=== PATIENT | female | born 1965 | race Caucasian/White ===

== ENCOUNTER 2016-11-28 22:31 | Emergency (ER) | payer OTHER ==
[~2016-11-28] VITALS: Ht 170.2 cm; Wt 86.4 kg
[2016-11-28 22:35] VITALS: BP 155/106; PULSE 84; RESP 24; O2SAT 99
--- NOTE | 2016-11-28 22:43 | ED.REPORT ---
HPI-General Illness Date of Service Nov 28, 2016 ED Provider: Abraham Puentes.O. A 51 year old female with a history of Doris's thyroiditis presents to the ED with worsening dysphagia onset tonight. The patient feels as though there is a lump at the base of her throat and throat swelling. She has an appointment with GI in two days because this problem has been progressing some time, but she "just couldn't wait until then." She had a normal swallow test two months ago. The patient is extremely anxious during the interview. She denies vomiting. He is also going to see Dr. aburto tomorrow from ear nose and throat. Nursing Notes Stated Complaint: THROAT SWELLING Chief Complaint: General Complaint Nursing Notes Reviewed: Yes Allergies: Coded Allergies: Penicillins (Verified Allergy, Mild, rash, 11/28/16) General Time Seen by MD: 22:42 Chief Complaint Other (Dysphagia) Hx Obtained From: Patient Arrived By: Walk-in Sudden in Onset?: No Onset Occurred: 1 - 4 hours ago Symptom Duration: Since onset Location: : Neck (Throat) Quality: Painful Severity: Current: Moderate Severity: Maximum: Moderate Associated with: Denies: Fever, Vomiting Pertinent Negative: Relieved by nothing Recent Healthcare: No recent doctor visit Similar Sx Previous: Yes Past Medical History Past Medical History Odris's thyroiditis Past Surgical History None reported Smoking History Unknown if Ever Smoker Social History Other Social History: Good social support, Ambulatory Status Independent Review of Systems + dysphagia Full Review of Systems Constitutional: Denies: Fever Ears / Nose / Throat: Reports: Throat swelling Respiratory: Denies: Non-productive cough, Shortness of breath GI: Denies: Vomiting Neurologic: Denies: Unable to speak Psychiatric: Reports: Anxiety Complete sys rev & neg: except as marked. Physical Exam Vital Signs Vital Signs Date Time Temp Pulse Resp B/P Pulse Ox O2 Delivery O2 Flow Rate FiO2 11/29/16 01:54 68 16 115/74 94 Room Air 11/28/16 22:35 36.9 84 24 155/106 99 Room Air Initial VS: Reviewed Head / Eyes: Atraumatic, Normocephalic Respiratory: Breath sounds normal, Clear to auscultation, No respiratory distress Cardiovascular: Regular rate & rhythm, Heart sounds normal Skin: Warm, Dry, No cyanosis Neurologic: Alert, Oriented, Nonfocal General/Constitutional: Awake, Alert Behavior: Positive: Anxious ENT: Airway patent, Mucous membranes moist, No trismus No stridor, no trismus, no drooling Neck: Supple, Full range of motion, No masses Psychiatric: Affect NL, Cognitive function NL, Thought content NL Abnormal Mood/Affect: Positive: Anxious Interpretation & Diagnostics CT NECK W/ IV CONTRAST: CONCLUSION: Mild soft tissue thickening of the left vallecula, nonspecific, may be artifact from retained secretions. Cannot rule out underlying mass or inflammatory/ infectious abnormailyt. Mild heterogeneous enhancing thyroid, nonspecific. No radiopaque foreign body of the upper aerodigestive tract. Transmitted to ED by Valeria Alvarenga M.D. at 11/29/2016 - 1:18:28 AM PST Lab Results Interpretation Result Diagram: 11/28/16 2318 11/28/16 2318 Test 11/28/16 23:18 White Blood Count 4.7th/mm3 (3.8-10.1) Red Blood Count 5.24mil/mm3 (3.90-5.20) Hemoglobin 15.2g/dL (12.0-15.6) Hematocrit 44.9% (35.0-46.0) Mean Corpuscular Volume 85.7fL (81-100) Mean Corpuscular Hemoglobin 29.0pg (27.0-35.0) Mean Corpuscular Hemoglobin Concent 33.9% (32.0-37.0) Red Cell Distribution Width 13.5% (12.3-15.4) Platelet Count 242bil/L (150-400) Neutrophils (%) (Auto) 47.7% (40-74) Lymphocytes (%) (Auto) 42.9% (14-46) Monocytes (%) (Auto) 5.8% (4-12) Eosinophils (%) (Auto) 2.8% (0-5) Basophils (%) (Auto) 0.6% (0-3) Sodium Level 135mEq/L (134-144) Potassium Level 3.7mEq/L (3.5-5.2) Chloride Level 99mEq/L (97-108) Carbon Dioxide Level 21mmol/L (18-29) Blood Urea Nitrogen 15mg/dL (6-24) Creatinine 0.78mg/dL (0.57-1.00) Estimat Glomerular Filtration Rate 111mL/min (>59) Glucose Level 118mg/dL (60-99) Calcium Level 9.4mg/dL (8.5-10.1) Total Bilirubin 0.4mg/dL (0.0-1.2) Aspartate Amino Transf (AST/SGOT) 20U/L (0-50) Alanine Aminotransferase (ALT/SGPT) 17U/L (0-32) Alkaline Phosphatase 46U/L (25-150) Total Protein 7.3g/dL (6.4-8.4) Albumin 4.0g/dL (3.4-5.0) Thyroid Stimulating Hormone (TSH) 17.380uIU/mL (0.450-4.500) Hold Baugh Top Tube Received (Received) Re-Eval/Medical Decision Med Decision/Clinical Course Very pleasant 51-year-old female presents to emergency department highly anxious and very upset about her dysphagia. She has been suffering with subacute difficulty swallowing and she now has a fullness sensation in her throat whenever she swallows. She states that she has to spit out liquids. She does not have any cardiac symptoms. There is no referred pain to her neck. She states that if she drinks water slowly she get the past she is having trouble with food stuff. She does not have any history of stridor or drooling. On examination she is quite anxious. Her oropharynx. Normal to me. Her neck was supple. Her breath sounds were equal. Should symmetric carotid pulses. Taking account her degree of distress over her symptoms we performed a CT soft tissue of her neck. As it were the CT soft tissue of her neck shows some inflammation or swelling of the vallecula however this may be related to artifact or retained secretions. No signs of epiglottitis. No retropharyngeal abscess. We medicated acute with IV Ativan and this worked marvelously. She looks great now. She has no signs of an acute active infection. She has follow -up in the morning with Dr. aburto. She was given a copy of the CAT scan results for Dr. aburto to review. I do recommend direct laryngoscopy. She also is GI follow-up later this week for endoscopy and I think this too is indicated. She is discharged with a short course of Ativan. She will take this as instructed. She is returned she has any problems or any worsening symptoms. Routine sedative warnings were given. Time of Eval: 00:08 Patient Status: Condition improved Re-Evaluation/Progress Note: Patient rechecked. She is feeling better. Time of Eval: 01:27 Patient Status: Condition improved Re-Evaluation/Progress Note: Discussed with patient CT and lab results, diagnosis, and plan for discharge. Follow-up and return to the ER instructions given. Patient agrees with plan for care and all questions were addressed. Counseled Regarding: Diagnosis, Lab results, Need for follow-up, When/why to return to ED Discharge & Departure Primary Impression: Sensation of foreign body in esophagus Additional Impression: Dysphagia Dysphagia type: pharyngoesophageal phase Qualified Code: R13.14 - Dysphagia , pharyngoesophageal phase Disposition: Home Discharge Condition All VS Reviewed: Yes Condition: Stable Additional Instructions: Thank you for entrusting us with your care. Keep your appointment tomorrow with Dr. Aburto. Take a copy of your CT scan with you to indicate the area that needs to be examined. You may need a laryngoscopy in addition to endoscopy. Return to the ER with any new or worsening symptoms. Referrals: Ping White (PCP) Mathewibe Attestation Portions of this note were transcribed by Lilia Hook. I, Dr. Taylor, personally performed the history, physical exam, and medical decision-making; I reviewed and confirmed the accuracy of the information in the transcribed note. Signed by: Rosmery Jenkins, 11/29/2016, 02:09 copies to: Ping White Todd P DO Nov 28, 2016 22:43 LILIA HOOK Nov 28, 2016 22:53
[2016-11-28] MEDS ORDERED: 0.9% Sodium Chloride 1,000 ML IV SCH (22:50)
[2016-11-28 23:30] LABS: BASOPHILS % (AUTO) 0.6 % (0-3); EOSINOPHILS % (AUTO) 2.8 % (0-5); MONOCYTES % (AUTO) 5.8 % (4-12); Mean Corpuscular Volume 85.7 fL (81-100); NEUTROPHILS % (AUTO) 47.7 % (40-74); Platelet Count 242 bil/L (150-400)
[2016-11-29] MEDS ORDERED: _LORazepam 1 mg Tablet PO PRN (01:35)
[2016-11-29 01:54] VITALS: BP 115/74; PULSE 68; RESP 16; O2SAT 94
--- NOTE | 2016-11-29 08:28 | DRSVH ---
PROCEDURE: CT NECK SOFT TISSUES WITH CONTRAST ([id number]) INDICATIONS: inability to swallow, foreign body sensation at c5 TECHNIQUE: After the administration of intravenous contrast, 3.0 mm axial sections acquired from the sella to th e aortic arch. Additional oblique axial 3.0 mm sections acquired through the pharynx. 3 mm thick co dimple reformats were generated. For radiation dose reduction, the following was used: automated exp osure control. COMPARISON: None. FINDINGS: Image quality: Excellent. Lymph nodes: No enlarged lymph nodes seen throughout the neck. Vessels: Visualized vasculature appears patent. Neck spaces: The oropharynx, nasopharynx, and pharynx demonstrate no mucosal lesions. The vocal cor ds, false vocal cords, pyriform sinuses, epiglottis, and tongue base all appear normal. Extramucosal spaces appear unremarkable. There mild thickening of the vallecula without definitive mass lesion o r foreign body identified. Glands: The parotid and submandibular glands appear normal. Thyroid gland is unremarkable. Miscellaneous: Visualized brain and orbits appear normal. Lung apices appear clear. Superficial so ft tissues appear normal. Bones: No suspicious bony lesions. Visualized sinuses and mastoids appear unremarkable. IMPRESSION: 1. Mild thickened appearance of the vallecula, overall nonspecific without definitive mass lesion. Th is could be secondary to secretions, or less likely infection/inflammation or neoplasm. Interval foll owup of this area is recommended if clinical concern persists. Dictated by: Liss Yo M.D. on 11/29/2016 at 8:26 Approved by: Liss Yo M.D. on 11/29/2016 at 8:26
[2017-01-01] MEDS ORDERED: LEVO150T5 PO (08:59)
== END 2016-11-29 01:56 | disposition home or self-care (01) ==
LOC: SED 22:31
DX: R09.89 Other specified symptoms and signs involving the circulatory and respiratory systems (principal); R13.14 Dysphagia, pharyngoesophageal phase; Z88.0 Allergy status to penicillin
CPT/HCPCS: 36415; 70491; 80053; 84443; 85025; 96361; 96374; 99285; J2060; J7030; Q9967

== ENCOUNTER 2017-01-02 10:44 | Day surgery (SDC) | payer OTHER ==
[~2017-01-02] VITALS: Ht 170.2 cm; Wt 86.0 kg
[~2017-01-02 10:44] MED LIST: 0.9% Sodium Chloride 1,000 ML IV PRN; LEVO150T5 PO; Sodium Chloride LOK Flush 10 mL Syringe IV PRN; fentaNYL-PF 50 mCg/mL 2 mL Inj IVPUSH PRN
[2017-01-02 10:59] VITALS: BP 128/86; PULSE 72; RESP 16; O2SAT 97
[2017-01-02] MEDS ORDERED: PHEN-499 PO (10:59)
[2017-01-02] MEDS ORDERED: ESTR1PAT80 TRANSDERM (11:02)
[2017-01-02] MEDS ORDERED: ALBU8.5H2 INHALATION (11:02)
--- NOTE | 2017-01-02 11:44 | PCM.ENDEGD ---
EGD Date of Service: Jan 02, 2017 Physician Timothy Hill MD Pre Procedure Diagnosis: Dysphagia Post Procedure Dx & Findings: Esophagitis antral erosion Procedure Esophagogastroduodenoscopy PROCEDURE IN DETAIL: The patient was placed in left lateral decubitus position. Bite block was placed. Scope lubricated, placed in posterior pharynx, passed through the cricopharyngeus and esophagus, slowly advanced the entire length of the gastric pouch, pylorus was identified, scope passed through the pylorus and descending portion of duodenum, withdrawn in the antrum, retroflexed upon itself for view of fundus and cardia. Scope was then withdrawn through the oropharynx. Esophagus was unremarkable except for Z line appeared irregular. Z line at 40 cm The 2 spots that appear irregular appeared to have some scarring surrounding it. This was probably a millimeter in size. Biopsies obtained on both sides. We advanced to the stomach. Retroflexion was done. Stomach was easily inflatable deflatable using air. Cardia fundus body antrum and pylorus were all visualized. There was a 1 cm superficial erosion with surrounding edema and redness and this was biopsied. Scope advanced to the distal duodenum. Duodenum appeared normal with normal villous structures and normal folds. Impression Possible esophagitis Antral erosion Recommendation Prilosec 20 mg once a day Avoid NSAIDs Presedation Assessment Risks and Benefits Informed consent was obtained from the patient after all risks and benefits including but not limited to drug reaction, infection, pain, bleeding, perforation, as well as alternatives were discussed. Patient monitoring Continuous pulse oximetry, cardiac monitoring, blood pressure monitoring, IV access, and oxygen at 2L per nasal cannula. Periprocedural Fentanyl: Fentanyl 100mcg Incrementally Midazolam: Midazolam 5mg Incrementally Complications There were no periprocedural complications identified. Post Procedure Plan Post Procedure Recommendations 1. Restrict activities today. 2. Resume normal activities in the morning. 3. Resume medications. 4. GERD behavioral modification: - Avoid fatty, acidic, spicy, large meals - Do not lie down after meals - Do not eat or drink anything for at least 2 1/2 hours before going to bed at night - Discontinue tobacco and alcohol - Decrease or avoid caffeine - Avoid chocolate and mints - Decrease weight - Avoid aspirin and non steroidal anti-inflammatory agents (NSAID) such as Aleve, Advil, Mobic, Naproxen, Ibuprofen, etc 5. Add proton pump inhibitor. Take 30 minutes before 1st meal of the day. 6. Patient informed of normal post procedure side effects as bloating, drowsiness, blood streaking in the stool 7. If gastric biopsy reveal H.pylori, continue with appropriate treatment 8. If small bowel biopsy reveals celiac, continue with appropriate treatment 9. Please don't hesitate to call me with any questions Timothy Hill MD Jan 02, 2017 11:44
[2017-01-02 11:49] VITALS: BP 115/82; PULSE 57; RESP 16; O2SAT 94
[2017-01-02 11:58] VITALS: BP 112/81; PULSE 81; RESP 16; O2SAT 96
[2017-01-02 12:02] VITALS: BP 111/77; PULSE 66; RESP 16; O2SAT 95
--- NOTE | 2017-01-03 12:41 | PATH ---
SURGICAL PATHOLOGY Attending Physician:Timothy Hill M.D. CASE STATUS: Signed Out PATIENT NAME: LEFTY RICK PID: [id number] : 1965 DATE COLLECTED:01/02/2017 20:12 SPECIMEN: 1: Gastric, Biopsy 2: Esophagus, Biopsy CLINICAL HISTORY: 1). ANTRUM EROSION BIOPSY 2). GASTROESOPHAGEAL JUNCTION 47CM BIOPSY FINAL DIAGNOSIS: 1.GASTRIC ANTRUM BIOPSY: DIFFUSE MILD TO MODERATE CHRONIC GASTRITIS, FOCALLY ACTIVE, WITH FOCAL EROSION, INVOLVING ANTRAL MUCOSA. Immunohistochemistry for Helicobacter pending, to be reported by addendum. Negative for intestinal metaplasia. Negative for dysplasia and malignancy. 2.GASTROESOPHAGEAL JUNCTION BIOPSY AT 47 CM: SQUAMOUS MUCOSA AND GASTRIC CARDIA-TYPE MUCOSA CHRONICALLY INFLAMED, WITH REACTIVE EPITHELIAL CHANGES. Negative for specialized metaplasia of Flynn' s-type esophagus. Negative for dysplasia and malignancy. Rare eosinophils present within squamous epithelium, consistent with changes of chronic reflux. ICD10 code K29.70 GROSS DESCRIPTION: The specimen is received in two formalin filled containers labeled with the patient's name. 1). The specimen is sublabeled "antrum erosion" and consists of a 0.4 x 0.3 x 0.2 CM portion of tissue which is entirely submitted in cassette 1A. 2). The specimen is sublabeled "GEJ" and consists of 2 portions of tissue which aggregate to 0.3 x 0.2 x 0.2 CM. The specimen is entirely submitted in cassette 2A. 01/02/2017 [facility] MICRO DESCRIPTION: See diagnosis. ICD-9 CODES: CPT CODES: 1: 07776, 68097 2: 09028 PROCEDURE/ADDENDA: Immunohistochemistry SPI Interpretation {Not Entered} Results-Comments Immunohistochemistry Results Antrum, Erosion, Biopsy: Negative for Helicobacter pylori by immunohistochemistry. Electronically Signed Out Luis Alberto Rothman MD Electronically Signed Out Luis Alberto Rothman MD [facility] [address], [place] [address] Technical component performed at [facility], [address], [place], [address]
== END 2017-01-02 23:59 | disposition home or self-care (01) ==
LOC: END 10:44
PROVIDERS: ATTEND Internal Medicine
DX: R13.10 Dysphagia, unspecified (principal); K29.50 Unspecified chronic gastritis without bleeding; K21.9 Gastro-esophageal reflux disease without esophagitis; J45.909 Unspecified asthma, uncomplicated; E03.9 Hypothyroidism, unspecified
CPT/HCPCS: 43239; G0500; J2250; J3010; J7030

== ENCOUNTER 2017-02-10 22:36 | Observation (INO) | payer OTHER ==
[~2017-02-10] VITALS: Ht 170.2 cm; Wt 90.8 kg
[~2017-02-10 22:36] MED LIST changes: -0.9% Sodium Chloride 1,000 ML IV PRN; +ALBU8.5H2 INHALATION; +ESTR1PAT80 TRANSDERM; +PHEN-499 PO; -Sodium Chloride LOK Flush 10 mL Syringe IV PRN; -fentaNYL-PF 50 mCg/mL 2 mL Inj IVPUSH PRN
[2017-02-10 22:45] VITALS: BP 132/65; PULSE 104; RESP 27; O2SAT 88
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
[2017-02-10] MEDS ORDERED: Albuterol 0.5% (5mg/mL) 20 mL Inhalation Solution ONE (22:47)
[2017-02-10] MEDS ORDERED: Albuterol-Ipratropium 3 mL Inhalation Solution ONE (22:47)
[2017-02-10] MEDS ORDERED: 0.9% Sodium Chloride 1,000 ML IV ONE (22:51)
[2017-02-10 22:55] VITALS: PULSE 96; RESP 23; O2SAT 97
[2017-02-10] MEDS ORDERED: Dexamethasone 10 mg/mL Inj IVPUSH ONE (22:55)
[2017-02-10] MEDS ORDERED: Albuterol 2.5 mg/3 mL Inhalation Solution NEB ONE (22:55)
[2017-02-10] MEDS ORDERED: Albuterol-Ipratropium 3 mL Inhalation Solution NEB ONE (22:55)
[2017-02-10 23:08] LABS: BASOPHILS % (AUTO) 0.5 % (0-3); EOSINOPHILS % (AUTO) 3.6 % (0-5); MONOCYTES % (AUTO) 5.9 % (4-12); Mean Corpuscular Hemoglobin 28.6 pg (27.0-35.0); Mean Corpuscular Volume 89.1 fL (81-100); NEUTROPHILS % (AUTO) 66.3 % (40-74); Platelet Count 241 bil/L (150-400)
[2017-02-10 23:14] VITALS: BP 132/65; PULSE 101; RESP 16; O2SAT 100
[2017-02-10 23:30] LABS: INR 0.9 ratio
[2017-02-11] VITALS (20 sets, daily range): BP systolic 103–124; BP diastolic 52–72; PULSE 88–110; RESP 18–23; O2SAT 91–99
[2017-02-11] MEDS ORDERED: Albuterol 2.5 mg/3 mL Inhalation Solution NEB ONE (00:20)
[2017-02-11] MEDS ORDERED: Polyethylene Glycol (PEG) 17 Gm Powder PO PRN (01:50)
[2017-02-11] MEDS ORDERED: Alum-Mag Hydrox-Simeth 30 mL Suspension PO PRN (01:50)
[2017-02-11] MEDS ORDERED: albuterol nebulizer NEB (02:59)
[2017-02-11] MEDS ORDERED: Albuterol 2.5 mg/3 mL Inhalation Solution NEB PRN (03:10)
[2017-02-11] MEDS: Albuterol 2.5 mg/3 mL Inhalation Solution NEB SCH ×7 (03:27→20:22)
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
[2017-02-11 04:32] LABS: APPEARANCE,URINE CLEAR (CLEAR,HAZY); COLOR,URINE YELLOW (YELLOW); OCCULT BLOOD,URINE NEGATIVE (NEGATIVE); UROBILINOGEN,URINE NORMAL (NORMAL)
--- NOTE | 2017-02-11 06:32 | NUR ---
Admit note Pt arrived to [facility] at 0245. Pt placed on tele. Med rec completed by charge aide Kaylin. Pt wheezing upon arrival to [facility], neb treatments given by RT. Pt off floor for CT, taken by charge aide. Medicated pt with 2 tabs tylenol for headache pain 04/21. Admit questions not completed this shift, charge aide aware. Call light within reach, frequent rounding.
[2017-02-11] MEDS: MethylprednisoLONE Sodium Succinate 62.5 mg/mL 2 mL Inj IVPUSH SCH ×3 (06:49→18:34)
--- NOTE | 2017-02-11 07:37 | DRSVH ---
PROCEDURE: X-RAY CHEST ONE VIEW, PORTABLE ([id number]) INDICATIONS: shortness of breath TECHNIQUE: One view of the chest was acquired. COMPARISON: [facility], CT, CT ANGIO CHEST PE, 02/11/2017, 4:00. [facility], CR, CHEST 2VW, 01/16/2013, 18:30. FINDINGS: Surgical changes and devices: None. Lungs and pleura: No pleural effusions or pneumothorax. Lungs are clear. Mediastinum: Mediastinal contours appear normal. Heart size is normal. Bones and chest wall: No suspicious bony lesions. Overlying soft tissues appear unremarkable. IMPRESSION: No acute process. Dictated by: Lalo Mirza M.D. on 02/11/2017 at 7:35 Approved by: Lalo Mirza M.D. on 02/11/2017 at 7:35
--- NOTE | 2017-02-11 07:57 | DRSVH ---
PROCEDURE: CT ANGIO CHEST PULMONARY EMBOLISM ([id number]) INDICATIONS: shortness of breath TECHNIQUE: After the administration of intravenous contrast, 2 mm thick sections acquired from the pulmonary api vickie to the posterior costophrenic angles. 3-dimensional maximum intensity projection (MIP) coronal a nd sagittal reformats were then acquired through the thorax. For radiation dose reduction, the follo wing was used: automated exposure control, adjustment of mA and/or kV according to patient size. COMPARISON: [facility], CR, XR CHEST 1VW (PORTABLE), 02/10/2017, 22:48. FINDINGS: Image quality: Excellent. Pulmonary arteries: Pulmonary arteries are normal in size, and demonstrate no intraluminal filling d efects to suggest central pulmonary embolism. Lungs and pleura: Mild patchy atelectasis versus scarring within the right middle lobe medial segment . No pleural effusions or pneumothorax. Central and peripheral airways are patent. Mediastinum: Heart size is normal, without pericardial effusion. No mediastinal or hilar adenopathy . Thoracic aorta is normal in caliber and enhancement. Esophagus is normal in caliber. There is a s mall hiatal hernia. Bones and chest wall: No suspicious bony lesions. Ribs and thoracic spine appear intact throughout. Thyroid gland is within normal limits. No axillary or supraclavicular adenopathy. Abdomen: Visualized portions of the upper abdomen demonstrate a focal region of hypoenhancement invo lving the superior pole left kidney, measuring roughly 33 mm. IMPRESSION: 1. No pulmonary embolus. 2. Pyelonephritis versus infarct involving the left superior pole kidney; recommend correlation with urinalysis. 3. Concordant with preliminary interpretation. Dictated by: Lalo Mirza M.D. on 02/11/2017 at 7:52 Approved by: Lalo Mirza M.D. on 02/11/2017 at 7:55
[2017-02-11] MEDS ORDERED: SODI126M NS (08:14)
[2017-02-11] MEDS ORDERED: ESTRADIOL TOPICAL SCH ×2 (08:30→09:57)
[2017-02-11] MEDS ORDERED: MethylprednisoLONE Sodium Succinate 62.5 mg/mL 2 mL Inj IVPUSH SCH (08:30)
[2017-02-11] MEDS ORDERED: predniSONE 20 mg Tablet PO SCH (08:30)
[2017-02-11] MEDS: Pantoprazole 20 mg ER24 Tablet PO SCH ×2 (09:16→21:34)
--- NOTE | 2017-02-11 09:30 | NUR ---
Headache Pt c/o of headache 05/21 pain. Pg'd doctor and asked for pain medication to relieve symptoms. Pt did note that the Tylenol previously given did not help. Addendum: 02/11/17 at 1657 by MARIANO SUAREZ RN Pt c/o of head pain 07/22, radiating down ears and face. Mateo ramos to see if we can change freq of pain med to q4. Addendum: 02/11/17 at 1840 by MARIANO SUAREZ RN Pt continues to have headache, and nausea. Mateo ramos to see if he will change freq of pain meds, and order some additional Tylenol.
[2017-02-11] MEDS: oxyCODONE-Acetamin 5-325 mg Tablet PO PRN ×3 (09:55→21:34)
[2017-02-11] MEDS ORDERED: Sodium Chloride NAS 45 mL Spray NASAL SCH (10:00)
--- NOTE | 2017-02-11 11:21 | NUR ---
SOB Pt c/o feeling out of breath. Pt requested O2 mask instead of NC. She feels from her recent nose surgery that she cannot breath as well out of her nose. O2 sat 95% on 2L.
--- NOTE | 2017-02-11 13:28 | NUR ---
Social Work Note: Screen Note Data& Assessment: EMR reviewed. Patient is a 51 year old female admitted on 02/10/2017 for Asthma Exacerbation. Pt has [employer] for insurance coverage and sees ALEX Patten for primary care. Pt lives [place] with family and is independent at baseline. Pt is currently SBA in her room. No discharge needs identified at this time. SW to continue to follow if any needs arise. Plan: Anticipated discharge home via POV when medically ready. No discharge needs identified at this time. SW to continue to follow if any needs arise. Stephenie Pruett, SYED, ACM
[2017-02-11] MEDS: Sodium Chloride NAS 45 mL Spray NASAL SCH ×3 (14:31→21:35)
[2017-02-11] MEDS: Ondansetron 2 mg/mL 2 mL Inj IVPUSH PRN ×2 (16:51→20:58)
[2017-02-12] VITALS (15 sets, daily range): BP systolic 97–109; BP diastolic 57–66; PULSE 70–92; RESP 20–22; O2SAT 90–98
--- NOTE | 2017-02-12 | NUR ---
headache Pt reporting headache 9/10 at beginning of shift with nausea and vomiting. Medicated pt with 4 mg IV zofran. paged, orders to change percocet to Q4 PRN. Pt resting in bed after medication admin. Call light within reach, frequent rounding.
[2017-02-12] MEDS: MethylprednisoLONE Sodium Succinate 62.5 mg/mL 2 mL Inj IVPUSH SCH ×4 (00:11→18:35)
[2017-02-12] MEDS: Albuterol 2.5 mg/3 mL Inhalation Solution NEB SCH ×6 (00:22→21:07)
[2017-02-12] MEDS: Ondansetron 2 mg/mL 2 mL Inj IVPUSH PRN (04:42)
[2017-02-12] MEDS: oxyCODONE-Acetamin 5-325 mg Tablet PO PRN (04:53)
[2017-02-12] MEDS ORDERED: ESTR1PAT79 TOP (08:00)
[2017-02-12] MEDS ORDERED: ALBU2.5V4 INH (08:00)
[2017-02-12] MEDS: PHENTERMINE 30 MG PO SCH (08:30)
[2017-02-12] MEDS: Sodium Chloride NAS 45 mL Spray NASAL SCH ×5 (08:46→21:02)
[2017-02-12] MEDS: Pantoprazole 20 mg ER24 Tablet PO SCH ×2 (08:47→21:01)
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
--- NOTE | 2017-02-12 15:15 | NUR ---
Pain/O2 Pt requested change in pain medication due to nausea with Percocet. New order received from MD. 50 mg Ultram given PO, pt reports decreased pain level with no nausea. Oxygen decreased to 1.5 L via Oyxmask, pt sating at 94%. Frequent rounding in place, will continue to monitor.
--- NOTE | 2017-02-12 16:08 | NUR ---
Social Work - Readiness for Discharge Data: EMR reviewed. Pt is on day 1 of hospitalization for asthma exacerbation. Pt likely to discharge home tomorrow per morning rounds. Pt remains on 2 liters of 02. Working on weaning pt. Pt's to provide transport home at discharge. SW will continue to follow for needs. Assessment: Pt who is independent at baseline. Plan: Pt likely to discharge home with no needs via POV. SW will continue to follow for needs. KRISSY Sanders
[2017-02-13] MEDS: MethylprednisoLONE Sodium Succinate 62.5 mg/mL 2 mL Inj IVPUSH SCH ×2 (00:23→06:19)
[2017-02-13 01:08] VITALS: BP 100/52; PULSE 59; RESP 20; O2SAT 94
[2017-02-13] MEDS: Sodium Chloride NAS 45 mL Spray NASAL SCH ×2 (06:20→09:57)
[2017-02-13 06:39] VITALS: BP 97/60; PULSE 69; RESP 20; O2SAT 95
--- NOTE | 2017-02-13 06:50 | NUR ---
Respiration/O2 Titration SOB improved a lot per pt and RT,denies SOB at rest, mild SOB on exertion, SPO2 92% on RA at evening, O2 1-3 l per oximask placed and titrated by RT overnight, SPO2 92-93%. Decreased lung sounds bilaterally, coarse with a few wheezes posteriorly. NEB Tx administered by RT,no additional prn NEB needed when offered to pt.
[2017-02-13 07:22] VITALS: PULSE 72; RESP 20; O2SAT 97
[2017-02-13] MEDS: Albuterol 2.5 mg/3 mL Inhalation Solution NEB SCH (07:22)
--- NOTE | 2017-02-13 07:52 | PCM.DIMED ---
Discharge Instructions Date of Service Feb 13, 2017 Dates of Hospitalization Feb 11, 2017 at 01:46 Discharge Diagnosis Discharge Diagnosis Asthma Exacerbation Acute Maco Virus infection Diet Heart Healthy Activity Limited until seen by PCP Call your provider Fever or Chills, Shortness of breath Patient Instructions Follow-up plan Follow up with your primary care provider within a week, I will send records to her. Abraham Valdez MD Feb 13, 2017 07:52
[2017-02-13] MEDS ORDERED: PRED50TA PO (07:54)
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
[2017-02-13] MEDS: Pantoprazole 20 mg ER24 Tablet PO SCH (08:23)
[2017-02-13] MEDS: PHENTERMINE 30 MG PO SCH (08:23)
[2017-02-13 09:21] VITALS: PULSE 77
--- NOTE | 2017-02-13 09:59 | NUR ---
Discharge Note Pt denied any pain this morning, later c/o PLAZA, rating at 7/10. Ibuprofen 800mg effective for pain. Pt verbalized understanding of all discharge instructions, meds/Rx and follow up appt. Care Notes provided. Pt ready to discharge home with all belongings, waiting for ride home.
--- NOTE | 2017-02-13 10:15 | NUR ---
Social Work: Discharge Data: EMR reviewed. Pt is on day 2 of hospitalization for Asthma exacerbation. Pt is medically cleared to discharge per nurse's note. Pt's to provide transport home at discharge. Pt will discharge home with no needs Assessment: Pt who is independent at baseline. Plan: Pt to discharge home with no needs via POV. KRISSY Sanders
--- NOTE | 2017-02-13 10:30 | NUR ---
Discharge IV discontinued fully intact. Tele removed. Discharge instructions explained to patient and spouse who both verbalize understanding and agree to plan of care. Confirmed with hospitalist that RX was faxed to pharmacy. All personal belongings given to patient. Patient brought down to car via WC.
== END 2017-02-13 10:38 | disposition home or self-care (01) ==
LOC: SED 22:36 → MPC 02-11 01:46
PROVIDERS: ADMIT Internal Medicine; ATTEND Internal Medicine
DX: J45.901 Unspecified asthma with (acute) exacerbation (principal); B33.8 Other specified viral diseases; K21.9 Gastro-esophageal reflux disease without esophagitis; E06.3 Autoimmune thyroiditis; J30.2 Other seasonal allergic rhinitis; F41.9 Anxiety disorder, unspecified; Z88.0 Allergy status to penicillin; Z79.890 Hormone replacement therapy; Z90.710 Acquired absence of both cervix and uterus; Z98.890 Other specified postprocedural states
CPT/HCPCS: 36415; 71010; 71275; 80053; 81000; 83735; 84145; 85025; 85610; 85730; 87040; 87070; 87086; 87088; 87205; 87633; 93005; 94640; 94644; 94645; 94664; 94799; 96361; 96374; 96375; 96376; 99285; G0378; J1100; J2060; J2405; J2930; J7030; J7613; J7620; Q9967